=== PATIENT | female | born 1965 | race Hispanic/Latino ===

== ENCOUNTER 2020-07-24 20:26 | Emergency (ER) | payer OTHER ==
[~2020-07-24] VITALS: Ht 154.9 cm; Wt 112.0 kg
[2020-07-24] MEDS ORDERED: SODIUM CHLORIDE 0.9% 1000ML 1,000 ML IV STA ×3 (21:02→21:23)
[2020-07-24] MEDS ORDERED: ONDANSETRON HCL INJ 2MG/ML 2ML 2 MG/ML VIAL IV STA (21:02)
[2020-07-24] MEDS ORDERED: MORPHINE SULFATE INJ 2 MG/ML SYR IV STA (21:14)
[2020-07-24] MEDS ORDERED: ACETAMINOPHEN 325 MG TAB PO ONE (21:15)
[2020-07-24] MEDS ORDERED: SODIUM CHLORIDE 0.9% 1000ML 1,000 ML ONE (21:20)
[2020-07-24] MEDS ORDERED: SODIUM CHLORIDE 0.9% 500ML 500 ML IV STA (21:23)
[2020-07-24] MEDS ORDERED: MORPHINE SULFATE INJ 4 MG/ML INJ 1ML ONE (21:23)
[2020-07-24] MEDS ORDERED: VANCOMYCIN 1GM/NS 250 ML 250 ML IV ONE (21:30)
[2020-07-24] MEDS ORDERED: PIPER-TAZ 3.375 GM 50 ML IV ONE (21:30)
[2020-07-24] MEDS ORDERED: SODIUM CHLORIDE 0.9% 1000ML 2,000 ML ONE (21:39)
[2020-07-24] MEDS ORDERED: MORPHINE SULFATE INJ 4 MG/ML INJ 1ML IV STA (22:11)
== END 2020-07-25 01:30 | disposition other institution (70) ==
LOC: FSED 21:08
DX: R50.9 Fever, unspecified (principal); D72.829 Elevated white blood cell count, unspecified; R11.2 Nausea with vomiting, unspecified; T50.Z95A Adverse effect of other vaccines and biological substances, initial encounter; Z11.52 Encounter for screening for COVID-19
CPT/HCPCS: 71045; 74176; 80053; 81003; 83605; 85025; 87040; 99284; J2270; J2405; J2543; J3370; J7030; U0002